=== PATIENT | male | born 1960 | race Caucasian/White ===

== ENCOUNTER 2020-10-22 12:18 | Emergency (ER) | payer SELFPAY ==
[2020-10-22 12:27] VITALS: BP 163/107; PULSE 86
--- NOTE | 2020-10-22 13:16 | EDM.PDOC ---
ED HPI GENERAL MEDICAL PROBLEM - General Chief Complaint: ENT Problem Stated Complaint: DENTAL COMPLAINT Time Seen by Provider: 10/22/20 12:27 Source of Information: Reports: Patient, RN Notes Reviewed History Limitations: Reports: No Limitations - History of Present Illness INITIAL COMMENTS - FREE TEXT/NARRATIVE: Patient is a 60-year-old male presenting to the emergency department with complaints of pain and swelling a tooth in his left upper mouth. Reports the area has been tender for a number of days, however the swelling just developed approximately 2 days ago. He is scheduled to have his teeth pulled in November back home in [place]. He reports that he did have some clindamycin left over from a previous dental infection. He has taken 300 mg 4 times since last e vening. He also had a couple [place] leftover from a previous musculoskeletal injury. He took this in the evening for the last 2 nights to help him sleep, however he is out of this now. He has been taking ibuprofen with little relief. Denies any fever, chills, nausea, or vomiting. Left Oral/Mouth Pain Score (Numeric/FACES): 5 - Related Data Allergies Allergy/AdvReac Type Severity Reaction Status Date / Time Penicillins Allergy Rash Verified 10/22/20 12:27 Home Meds: Home Meds Omeprazole [Prilosec] 20 mg PO DAILY 08/25/13 [History] Hydrocodone/Acetaminophen [Hydrocodone-Acetamin 5-325 mg] 1 each PO Q4H PRN #10 tablet 10/22/20 [Rx] clindamycin HCL [Clindamycin HCl] 450 mg PO Q8H 7 Days #63 capsule 10/22/20 [Rx] Past Medical History HEENT History: Reports: None Cardiovascular History: Reports: None Respiratory History: Reports: None Gastrointestinal History: Reports: None Genitourinary History: Reports: Other (See Below) Other Genitourinary History: kidney infection Musculoskeletal History: Reports: None Neurological History: Reports: None Psychiatric History: Reports: None Endocrine/Metabolic History: Reports: None Hematologic History: Reports: None Immunologic History: Reports: None Oncologic (Cancer) History: Reports: None Dermatologic History: Reports: None - Infectious Disease History Infectious Disease History: Reports: None - Past Surgical History Musculoskeletal Surgical History: Reports: Shoulder Surgery Social & Family History - Family History Family Medical History: No Pertinent Family History - Tobacco Use Tobacco Use Status *Q: Never Tobacco User Second Hand Smoke Exposure: No - Caffeine Use Caffeine Use: Reports: Coffee - Recreational Drug Use Recreational Drug Use: No ED ROS ENT - Review of Systems Review Of Systems: See Below Constitutional: Reports: No Symptoms. Denies: Fever, Chills HEENT: Reports: Dental Pain Respiratory: Reports: No Symptoms Cardiovascular: Reports: No Symptoms Endocrine: Reports: No Symptoms GI/Abdominal: Reports: No Symptoms. Denies: Nausea, Vomiting : Reports: No Symptoms Musculoskeletal: Reports: No Symptoms Skin: Reports: No Symptoms Neurological: Reports: No Symptoms Psychiatric: Reports: No Symptoms Hematologic/Lymphatic: Reports: No Symptoms Immunologic: Reports: No Symptoms ED EXAM, ENT - Physical Exam Exam: See Below Exam Limited By: No Limitations General Appearance: Alert, WD/WN, No Apparent Distress Mouth/Throat: Dental Pain, Gum Swelling (Above tooth #6.), Other (Dental carry to tooth #6). No: Dental Abcess Respiratory/Chest: No Respiratory Distress, Lungs Clear, Normal Breath Sounds, No Accessory Muscle Use, Chest Non-Tender Cardiovascular: Normal Peripheral Pulses, Regular Rate, Rhythm, No Edema, No Gallop, No JVD, No Murmur, No Rub Neurological: Alert, Oriented, CN II-XII Intact, Normal Cognition, Normal Gait, Normal Reflexes, No Motor/Sensory Deficits Psychiatric: Normal Affect, Normal Mood Skin: Warm, Dry, Intact, Normal Color, No Rash Course - Vital Signs Last Recorded V/S: Last Vital Signs Temp 98.4 F 10/22/20 12:26 Pulse 86 10/22/20 12:26 Resp 20 10/22/20 12:26 BP 163/107 H 10/22/20 12:26 Pulse Ox 99 10/22/20 12:26 - Re-Assessments/Exams Free Text/Narrative Re-Assessment/Exam: Patient is a 60-year-old male presenting to the emergency department with complaints of pain and swelling in the area of tooth #6. On exam, he does have obvious dental carry tooth #6 as well as some mild erythema of the gums above this tooth. There is no evidence of abscess. Patient was started on clindamycin 450 mg 3 times daily x7 days. Also sent a short prescription for hydrocodone with Tylenol to help him sleep in the evenings. Recommend routine ibuprofen. Discussed return precautions including fail to improve over the next few days or any worsening symptoms. Discharge instructions as documented. Departure - Departure Time of Disposition: 13:13 Disposition: Home, Self-Care 01 Condition: Good Clinical Impression: Dental caries - Discharge Information *PRESCRIPTION DRUG MONITORING PROGRAM REVIEWED*: Yes *COPY OF PRESCRIPTION DRUG MONITORING REPORT IN PATIENT ROSEMARIE: No Prescriptions: clindamycin HCL [Clindamycin HCl] 450 mg PO Q8H 7 Days #63 capsule Hydrocodone/Acetaminophen [Hydrocodone-Acetamin 5-325 mg] 1 each PO Q4H PRN #10 tablet PRN Reason: Pain Instructions: Diet and Dental Disease Referrals: PCP,None [Primary Care Provider] - Forms: ED Department Discharge Additional Instructions: You were seen in the emergency department today for pain and swelling to your left upper mouth. You been started on clindamycin which is an antibiotic as well as hydrocodone with Tylenol for pain. Recommend routine ibuprofen for the next few days. For pain not relieved by this, you may take one of the hydrocodone. Symptoms should begin to improve over the next few days. If you should experience any worsening symptoms or symptoms fail to improve, you should follow-up either in the clinic, with a dentist, or return to ER. Sepsis Event Note (ED) - Evaluation Sepsis Screening Result: No Definite Risk
== END 2020-10-22 13:26 | disposition home or self-care (01) ==
LOC: JD.ED 12:18
DX: K02.9 Dental caries, unspecified (principal); Z88.0 Allergy status to penicillin
CPT/HCPCS: 99282

== ENCOUNTER 2021-03-05 10:42 | Emergency (ER) | payer SELFPAY ==
[2021-03-05 11:07] VITALS: BP 169/91; PULSE 69
--- NOTE | 2021-03-05 11:37 | EDM.PDOC ---
ED HPI GENERAL MEDICAL PROBLEM - General Chief Complaint: Genitourinary Problem Stated Complaint: BLOOD IN URINE Time Seen by Provider: 03/05/21 11:03 Source of Information: Reports: Patient, Old Records, RN Notes Reviewed History Limitations: Reports: No Limitations - History of Present Illness INITIAL COMMENTS - FREE TEXT/NARRATIVE: Patient is a 60-year-old male who presents to the ER for evaluation of blood in his urine. States that he had issues with this back in August, and did actually have a hospitalization for urosepsis, and he said he had a stent placed at that time. He noticed for at least the last 3 days, he has had more blood in his urine. 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 He notes that the blood in his urine seems to lessen when he is relaxing, and not at work. Also is complaining of urinary urgency at this time, some right groin pain, and left flank pain. No fevers, no chills, no cough/shortness of breath or any sort of nausea/vomiting/diarrhea. - Related Data Allergies Allergy/AdvReac Type Severity Reaction Status Date / Time No Known Allergies Allergy Verified 03/05/21 11:07 Home Meds: Home Meds Omeprazole [Prilosec] 20 mg PO DAILY 08/25/13 [History] Past Medical History Genitourinary History: Reports: Other (See Below) Other Genitourinary History: kidney infection; prostatitis, urosepsis in August 2020-hospitalized for 10 days Psychiatric History: Reports: Addiction Other Psychiatric History: hx of recreational drug use/addiction Endocrine/Metabolic History: Reports: Obesity/BMI 30+ - Past Surgical History Male Surgical History: Reports: Ureteral Stent (states was placed in August 2020) Musculoskeletal Surgical History: Reports: Shoulder Surgery Social & Family History - Family History Family Medical History: No Pertinent Family History - Tobacco Use Tobacco Use Status *Q: Never Tobacco User Second Hand Smoke Exposure: No - Caffeine Use Caffeine Use: Reports: Coffee - Recreational Drug Use Recreational Drug Use: Yes Drug Use in Last 12 Months: No Recreational Drug Type: Reports: Cocaine ED ROS GENERAL - Review of Systems Review Of Systems: Comprehensive ROS is negative, except as noted in HPI. ED EXAM, RENAL/ - Physical Exam Exam: See Below Exam Limited By: No Limitations General Appearance: Alert, WD/WN, No Apparent Distress Respiratory/Chest: No Respiratory Distress, Lungs Clear, Normal Breath Sounds, No Accessory Muscle Use, Chest Non-Tender Cardiovascular: Normal Peripheral Pulses, Regular Rate, Rhythm, No Edema GI/Abdominal: Normal Bowel Sounds, Soft, Non-Tender, No Distention, No Mass Extremities: Normal Inspection, Normal Capillary Refill Neurological: Alert, Oriented, Normal Cognition, No Motor/Sensory Deficits Psychiatric: Normal Affect, Normal Mood Skin Exam: Warm, Dry, Intact, Normal Color, No Rash Course - Vital Signs Last Recorded V/S: Last Vital Signs Temp 98 F 03/05/21 10:59 Pulse 69 03/05/21 10:59 Resp 16 03/05/21 10:59 BP 169/91 H 03/05/21 10:59 Pulse Ox 98 03/05/21 10:59 - Orders/Labs/Meds Labs: Laboratory Tests 03/05/21 03/05/21 03/05/21 Range/Units 11:11 11:39 11:39 WBC 4.83 (4.23-9.07) K/mm3 RBC 5.12 (4.63-6.08) M/mm3 Hgb 14.0 (13.7-17.5) gm/dl Hct 40.2 (40.1-51.0) % MCV 78.5 L (79.0-92.2) fl MCH 27.3 (25.7-32.2) pg MCHC 34.8 (32.2-35.5) g/dl RDW Std Deviation 39.8 (35.1-43.9) fL Plt Count 209 (163-337) K/mm3 MPV 8.8 L (9.4-12.3) fl Neut % (Auto) 62.4 (34.0-67.9) % Lymph % (Auto) 28.8 (21.8-53.1) % [place] % (Auto) 6.4 (5.3-12.2) % Eos % (Auto) 1.0 (0.8-7.0) Baso % (Auto) 1.2 (0.1-1.2) % Neut # (Auto) 3.01 (1.78-5.38) K/mm3 Lymph # (Auto) 1.39 (1.32-3.57) K/mm3 [place] # (Auto) 0.31 (0.30-0.82) K/mm3 Eos # (Auto) 0.05 (0.04-0.54) K/mm3 Baso # (Auto) 0.06 (0.01-0.08) K/mm3 Sodium 139 (136-145) mEq/L Potassium 3.8 (3.5-5.1) mEq/L Chloride 104 (98-107) mEq/L Carbon Dioxide 25 (21-32) mEq/L Anion Gap 13.8 (5-15) BUN 11 (7-18) mg/dL Creatinine 0.9 (0.7-1.3) mg/dL Est Cr Clr Drug Dosing 89.00 mL/min Estimated GFR (MDRD) > 60 (>60) mL/min BUN/Creatinine Ratio 12.2 L (14-18) Glucose 109 H (70-99) mg/dL Calcium 8.5 (8.5-10.1) mg/dL Total Bilirubin 0.5 (0.2-1.0) mg/dL AST 16 (15-37) U/L ALT 28 (16-63) U/L Alkaline Phosphatase 50 (46-116) U/L C-Reactive Protein <0.2 (<1.0) mg/dL Total Protein 7.0 (6.4-8.2) g/dl Albumin 3.5 (3.4-5.0) g/dl Globulin 3.5 gm/dL Albumin/Globulin Ratio 1.0 (1-2) Urine Color Dark yellow (Yellow) Urine Appearance Slt cloudy H (Clear) Urine pH 6.0 (5.0-8.0) Ur Specific [place] 1.025 (1.005-1.030) Urine Protein 2+ H (Negative) Urine Glucose (UA) Negative (Negative) Urine Ketones Negative (Negative) Urine Occult Blood 3+ H (Negative) Urine Nitrite Positive H (Negative) Urine Bilirubin Negative (Negative) Urine Urobilinogen 0.2 (0.2-1.0) Ur Leukocyte Esterase Trace H (Negative) Urine RBC >100 H (0-5) /hpf Urine WBC 5-10 H (0-5) /hpf Ur Squamous Epith Cells 0-5 (0-5) /hpf Urine Bacteria Moderate H (FEW) /hpf Urine Mucus Few (FEW) /hpf - Re-Assessments/Exams Free Text/Narrative Re-Assessment/Exam: 03/05/21 11:39 Patient presents to the ER for his blood in his urine, will get a urinalysis and basic labs for initial management. Does appear as if he is at risk for UTI versus prostatitis. 03/05/21 12:09 Labs have resulted, CBC is unremarkable, CMP also unremarkable. Urinalysis is positive for UTI with nitrites, over 100 red blood cells per high-power field, and 5-10 white blood cells per high-power field and moderate bacteria within the urine itself. We will treat him for this with levofloxacin once daily x2 weeks and then doxycycline twice daily for 1 month after this as it is suspect is coming from the prostate. Departure - Departure Time of Disposition: 12:09 Disposition: Home, Self-Care 01 Condition: Good Clinical Impression: Prostatitis Qualifiers: Prostatitis type: acute Qualified Code(s): N41.0 - Acute prostatitis UTI (urinary tract infection) Qualifiers: Urinary tract infection type: acute cystitis Hematuria presence: with hematuria Qualified Code(s): N30.01 - Acute cystitis with hematuria - Discharge Information *PRESCRIPTION DRUG MONITORING PROGRAM REVIEWED*: No *COPY OF PRESCRIPTION DRUG MONITORING REPORT IN PATIENT ROSEMARIE: No Instructions: Prostatitis, [id number] Referrals: PCP,None [Primary Care Provider] - Forms: ED Department Discharge Additional Instructions: You have been evaluated in the ED for your urinary symptoms. Your urinalysis was consistent with an acute urinary tract infection; likely secondary to prostatitis. Your urine was sent for culture, and you will be notified if you should need a change in your antibiotic. This may take up to 48 hours to result. Since you are already taking Azo for urinary pain relief; you should only use this medication for a time period not longer than 72 hours. So after tomorrow, please cease use of this medication as it can be fairly toxic to your liver. You have been given a prescription for 2 different antibiotics, first antibiotic will be levofloxacin 1 tablet daily for the first 2 weeks and then doxycycline 1 tablet 2 times a day for 1 month. This is to treat bacteria suspect coming from your prostate; which is likely causing you to have ongoing urinary issues. Antibiotics can take up to 48 hours to start providing effect, if you do not notice a improvement in your symptoms by about Sunday or Sunday, I would recommend that you seek care for reevaluation. This medication was electronically sent to the [place] pharmacy located in the [employer] [facility]. Please increase your oral fluid intake and try to stay adequately hydrated. Please return to the ED if your symptoms change or worsen. Thank you for allowing and choosing us to be involved in your healthcare needs. Sepsis Event Note (ED) - Evaluation Sepsis Screening Result: No Definite Risk - Focused Exam Vital Signs: Vital Signs Temp Pulse Resp BP Pulse Ox 03/05/21 10:59 98 F 69 16 169/91 H 98
== END 2021-03-05 12:20 | disposition home or self-care (01) ==
LOC: JD.ED 10:42
DX: N30.01 Acute cystitis with hematuria (principal); N41.0 Acute prostatitis; E66.9 Obesity, unspecified; Z68.32 Body mass index [BMI] 32.0-32.9, adult
CPT/HCPCS: 36415; 80053; 81001; 85025; 86140; 87086; 99284

== ENCOUNTER 2021-03-31 14:21 | Emergency (ER) | payer SELFPAY ==
[2021-03-31] MEDS ORDERED: Sodium Chloride 0.9% 10 ML Syringe FLUSH PRN (14:35)
[2021-03-31] MEDS ORDERED: Sodium Chloride 0.9% 1,000 ML IV SCH (14:45)
[2021-03-31] MEDS ORDERED: Ondansetron 4 MG/2 ML SDV IVPUSH ONE (14:54)
[2021-03-31] MEDS ORDERED: HYDROmorphone 0.5 MG/0.5 ML Syringe IVPUSH ONE ×4 (14:54→18:31)
[2021-03-31] MEDS ORDERED: Iopamidol 612 MG/ML 100 ML Bottle IVPUSH ONE (15:05)
[2021-03-31] MEDS ORDERED: Iopamidol 612 MG/ML 50 ML SDV IVPUSH ONE (15:05)
[2021-03-31] MEDS ORDERED: Sodium Chloride 0.9% 10 ML Syringe FLUSH ONE (15:05)
--- NOTE | 2021-03-31 15:29 | EDM.PDOC ---
ED HPI GENERAL MEDICAL PROBLEM - General Chief Complaint: Genitourinary Problem Stated Complaint: BLOOD IN URINE/UNABLE TO SLEEP/FEVER Time Seen by Provider: 03/31/21 14:37 Source of Information: Reports: Patient, RN Notes Reviewed History Limitations: Reports: No Limitations - History of Present Illness INITIAL COMMENTS - FREE TEXT/NARRATIVE: Patient is a 61-year-old male presenting to the emergency department with complaints of right flank pain radiating into his right lower quadrant. Symptoms have been present for approximately last week and have been progressively worsening. He has a history of pyelonephritis with stent placement in August. He was seen in this emergency department 1 month ago and diagnosed with urinary tract infection secondary to prostatitis. He was put on a 7-day course of Levaquin which she did complete. He is still taking doxycycline 100 mg twice daily for treatment of this. Patient reports he has had hematuria. A few days ago he states it was "very bloody ". It then cleared up. Today states his urine is brown in color. He reports difficulty voiding. He denies any known fever. He has had no nausea or vomiting. He is concerned t hat his stent may have dislodged from his ureter. Generalized Pain Score (Numeric/FACES): 10 - Related Data Allergies Allergy/AdvReac Type Severity Reaction Status Date / Time No Known Allergies Allergy Verified 03/05/21 11:07 Home Meds: Home Meds Omeprazole [Prilosec] 20 mg PO DAILY 08/25/13 [History] Doxycycline [Vibramycin] 100 mg PO BID 30 Days #60 tab 03/05/21 [Rx] levoFLOXacin [Levofloxacin] 500 mg PO DAILY #14 tablet 03/05/21 [Rx] Past Medical History Gastrointestinal History: Reports: GERD Genitourinary History: Reports: Other (See Below) Other Genitourinary History: ;kidney infection; prostatitis, urosepsis in August 2020-hospitalized for 10 days; urinary stent to the right urter Psychiatric History: Reports: Addiction Other Psychiatric History: hx of recreational drug use/addiction Endocrine/Metabolic History: Reports: Obesity/BMI 30+ - Infectious Disease History Infectious Disease History: Reports: None - Past Surgical History Male Surgical History: Reports: Ureteral Stent Musculoskeletal Surgical History: Reports: Shoulder Surgery Social & Family History - Family History Family Medical History: No Pertinent Family History - Tobacco Use Tobacco Use Status *Q: Never Tobacco User - Caffeine Use Caffeine Use: Reports: Coffee, Soda - Recreational Drug Use Recreational Drug Use: No ED ROS GENERAL - Review of Systems Review Of Systems: Comprehensive ROS is negative, except as noted in HPI. ED EXAM, RENAL/ - Physical Exam Exam: See Below General Appearance: Alert, Anxious, Moderate Distress, Other (Intermittently tearful) Respiratory/Chest: No Respiratory Distress, Lungs Clear, Normal Breath Sounds, No Accessory Muscle Use, Chest Non-Tender Cardiovascular: Normal Peripheral Pulses, Regular Rate, Rhythm, No Edema, No Gallop, No JVD, No Murmur, No Rub GI/Abdominal: Normal Bowel Sounds, Soft, No Organomegaly, No Distention, No Abnormal Bruit, No Mass, Tender (Mild tenderness to deep palpation of the right lower and right lateral abdomen.) Back Exam: Normal Inspection, Full Range of Motion, CVA Tenderness (R) Neurological: Alert, Oriented, Normal Cognition, Normal Gait, No Motor/Sensory Deficits Psychiatric: Normal Affect, Normal Mood Skin Exam: Warm, Dry, Intact, Normal Color, No Rash Course - Vital Signs Last Recorded V/S: Last Vital Signs Temp 98.3 F 03/31/21 16:40 Pulse 91 03/31/21 16:40 Resp 18 03/31/21 16:40 BP 164/106 H 03/31/21 16:40 Pulse Ox 97 03/31/21 16:40 - Orders/Labs/Meds Orders: Active Orders 24 hr Category Date Time Status Peripheral IV Insertion Adult [OM.PC] Stat Oth 03/31/21 14:35 Ordered Labs: Laboratory Tests 03/31/21 03/31/21 03/31/21 Range/Units 14:45 14:45 14:45 WBC 7.32 (4.23-9.07) K/mm3 RBC 5.39 (4.63-6.08) M/mm3 Hgb 14.8 (13.7-17.5) gm/dl Hct 41.8 (40.1-51.0) % MCV 77.6 L (79.0-92.2) fl MCH 27.5 (25.7-32.2) pg MCHC 35.4 (32.2-35.5) g/dl RDW Std Deviation 39.0 (35.1-43.9) fL Plt Count 312 D (163-337) K/mm3 MPV 9.2 L (9.4-12.3) fl Neut % (Auto) 62.8 (34.0-67.9) % Lymph % (Auto) 28.4 (21.8-53.1) % [place] % (Auto) 7.4 (5.3-12.2) % Eos % (Auto) 0.8 (0.8-7.0) Baso % (Auto) 0.3 (0.1-1.2) % Neut # (Auto) 4.60 (1.78-5.38) K/mm3 Lymph # (Auto) 2.08 (1.32-3.57) K/mm3 [place] # (Auto) 0.54 (0.30-0.82) K/mm3 Eos # (Auto) 0.06 (0.04-0.54) K/mm3 Baso # (Auto) 0.02 (0.01-0.08) K/mm3 Sodium 144 (136-145) mEq/L Potassium 3.8 (3.5-5.1) mEq/L Chloride 107 (98-107) mEq/L Carbon Dioxide 23 (21-32) mEq/L Anion Gap 17.8 H (5-15) BUN 19 H (7-18) mg/dL Creatinine 1.5 H (0.7-1.3) mg/dL Est Cr Clr Drug Dosing 52.72 mL/min Estimated GFR (MDRD) 47 (>60) mL/min BUN/Creatinine Ratio 12.7 L (14-18) Glucose 120 H (70-99) mg/dL Calcium 8.9 (8.5-10.1) mg/dL Total Bilirubin 0.3 (0.2-1.0) mg/dL AST 20 (15-37) U/L ALT 29 (16-63) U/L Alkaline Phosphatase 59 (46-116) U/L C-Reactive Protein <0.2 (<1.0) mg/dL Total Protein 7.3 (6.4-8.2) g/dl Albumin 3.5 (3.4-5.0) g/dl Globulin 3.8 gm/dL Albumin/Globulin Ratio 0.9 L (1-2) Urine Color (Yellow) Urine Appearance (Clear) Urine pH (5.0-8.0) Ur Specific [place] (1.005-1.030) Urine Protein (Negative) Urine Glucose (UA) (Negative) Urine Ketones (Negative) Urine Occult Blood (Negative) Urine Nitrite (Negative) Urine Bilirubin (Negative) Urine Urobilinogen (0.2-1.0) Ur Leukocyte Esterase (Negative) Urine RBC (0-5) /hpf Urine WBC (0-5) /hpf Ur Squamous Epith Cells (0-5) /hpf Calcium Oxalate Crystal (NONE) Urine Bacteria (FEW) /hpf Urine Mucus (FEW) /hpf SARS-CoV-2 RNA (SEB) (NEGATIVE) 03/31/21 03/31/21 Range/Units 16:10 16:10 WBC (4.23-9.07) K/mm3 RBC (4.63-6.08) M/mm3 Hgb (13.7-17.5) gm/dl Hct (40.1-51.0) % MCV (79.0-92.2) fl MCH (25.7-32.2) pg MCHC (32.2-35.5) g/dl RDW Std Deviation (35.1-43.9) fL Plt Count (163-337) K/mm3 MPV (9.4-12.3) fl Neut % (Auto) (34.0-67.9) % Lymph % (Auto) (21.8-53.1) % [place] % (Auto) (5.3-12.2) % Eos % (Auto) (0.8-7.0) Baso % (Auto) (0.1-1.2) % Neut # (Auto) (1.78-5.38) K/mm3 Lymph # (Auto) (1.32-3.57) K/mm3 [place] # (Auto) (0.30-0.82) K/mm3 Eos # (Auto) (0.04-0.54) K/mm3 Baso # (Auto) (0.01-0.08) K/mm3 Sodium (136-145) mEq/L Potassium (3.5-5.1) mEq/L Chloride (98-107) mEq/L Carbon Dioxide (21-32) mEq/L Anion Gap (5-15) BUN (7-18) mg/dL Creatinine (0.7-1.3) mg/dL Est Cr Clr Drug Dosing mL/min Estimated GFR (MDRD) (>60) mL/min BUN/Creatinine Ratio (14-18) Glucose (70-99) mg/dL Calcium (8.5-10.1) mg/dL Total Bilirubin (0.2-1.0) mg/dL AST (15-37) U/L ALT (16-63) U/L Alkaline Phosphatase (46-116) U/L C-Reactive Protein (<1.0) mg/dL Total Protein (6.4-8.2) g/dl Albumin (3.4-5.0) g/dl Globulin gm/dL Albumin/Globulin Ratio (1-2) Urine Color Chery H (Yellow) Urine Appearance Cloudy H (Clear) Urine pH 6.5 (5.0-8.0) Ur Specific [place] 1.025 (1.005-1.030) Urine Protein 3+ H (Negative) Urine Glucose (UA) Negative (Negative) Urine Ketones 1+ H (Negative) Urine Occult Blood 3+ H (Negative) Urine Nitrite Negative (Negative) Urine Bilirubin 1+ H (Negative) Urine Urobilinogen 0.2 (0.2-1.0) Ur Leukocyte Esterase 1+ H (Negative) Urine RBC >100 H (0-5) /hpf Urine WBC 5-10 H (0-5) /hpf Ur Squamous Epith Cells 0-5 (0-5) /hpf Calcium Oxalate Crystal Few H (NONE) Urine Bacteria Moderate H (FEW) /hpf Urine Mucus Few (FEW) /hpf SARS-CoV-2 RNA (SEB) Negative (NEGATIVE) Meds: Medications Discontinued Medications Generic Name Dose Route Start Last Admin Trade Name Freq PRN Reason Stop Dose Admin Hydromorphone HCl 0.5 mg 03/31/21 14:54 03/31/21 15:02 Hydromorphone 0.5 Mg/0.5 Ml Syringe IVPUSH 03/31/21 14:55 0.5 mg ONETIME ONE Administration Hydromorphone HCl 0.5 mg 03/31/21 15:28 03/31/21 16:13 Hydromorphone 0.5 Mg/0.5 Ml Syringe IVPUSH 03/31/21 15:29 0.5 mg ONETIME ONE Administration Hydromorphone HCl 0.5 mg 03/31/21 17:20 03/31/21 17:45 Hydromorphone 0.5 Mg/0.5 Ml Syringe IVPUSH 03/31/21 17:21 0.5 mg ONETIME ONE Administration Hydromorphone HCl 0.5 mg 03/31/21 18:31 03/31/21 18:42 Hydromorphone 0.5 Mg/0.5 Ml Syringe IVPUSH 03/31/21 18:32 0.5 mg ONETIME ONE Administration Sodium Chloride 1,000 mls @ 150 mls/hr 03/31/21 14:45 03/31/21 14:49 Normal Saline IV 150 mls/hr ASDIRECTED LUIS Administration Ceftriaxone Sodium 2 gm/ 100 mls @ 200 mls/hr 03/31/21 18:27 03/31/21 18:44 Sodium Chloride IV 03/31/21 18:56 200 mls/hr ONETIME ONE Administration Iopamidol 100 ml 03/31/21 15:05 Iopamidol 612 Mg/Ml 100 Ml Bottle IVPUSH 03/31/21 15:06 ONETIME ONE Iopamidol 50 ml 03/31/21 15:05 Iopamidol 612 Mg/Ml 50 Ml Sdv IVPUSH 03/31/21 15:06 ONETIME ONE Ondansetron HCl 4 mg 03/31/21 14:54 03/31/21 15:02 Ondansetron 4 Mg/2 Ml Sdv IVPUSH 03/31/21 14:55 4 mg ONETIME ONE Administration Sodium Chloride 10 ml 03/31/21 14:35 03/31/21 14:50 Sodium Chloride 0.9% 10 Ml Syringe FLUSH 10 ml ASDIRECTED PRN Administration Keep Vein Open Sodium Chloride 10 ml 03/31/21 15:05 Sodium Chloride 0.9% 10 Ml Syringe FLUSH 03/31/21 15:06 ONETIME ONE - Re-Assessments/Exams Free Text/Narrative Re-Assessment/Exam: Patient is a 21-year-old female presenting to the emergency department with complaints of a 1 week history of pelvic pain and cramping as well as nasal congestion. Patient is a 61-year-old male presenting to the emergency department with complaints of severe right flank pain with radiation into his right lower quadrant abdomen. Symptoms have progressively worsening over the course of the last week. Treated 1 month ago for urinary tract infection and continues doxycycline at this time. On exam, patient has significant right CVA tenderness. He is in obvious distress. Bowel sounds are active in all 4 quadrants. Mild tenderness to deep palpation of the right lobe lower quadrant. I have ordered blood work, urinalysis, Covid testing, normal saline at 150 mill per hour, Dilaudid for pain, Zofran for nausea. I will complete a CT scan of the abdomen pelvis with IV contrast only. 03/31/21 1450 Hematology significant for anion gap elevated 17.8, BUN 19, creatinine 1.5. He has not produced a urine thus far. GFR is decreased from 60 when he was here 1 month ago to 47. We will complete the CT of the abdomen pelvis without contrast as this will show us stones, pyelonephritis, and hydronephrosis. If there is no evidence of any of these, we will repeat CT scan with IV contrast to look for renal infarct. 03/31/[address] scan of the abdomen pelvis impression as follows: 1. Dilatated right renal pelvis. Stent within the renal pelvis is noted with the distal end of the stent terminating within the bladder. 2. Spleen is enlarged with a length of 15.3 cm. 3. Small hiatal hernia. Given these findings, I am concerned that the patient's ureteral stent is obstructed. He has just provided us a urine sample. Urinalysis is significant for 3+ occult blood, 1+ bili, 1+ leukocyte esterase, greater than 100 RBCs, 5-10 WBCs, and moderate bacteria. I have placed a call to the urologist on-call at [facility]. He will call me back. 03/31/21 1746 Call was received from the urologist on-call at [facility], Dr. Cabrera. He agrees that the patient's stent is likely obstructed. He will call me back in a few minutes. 03/31/21 18:37 Call received from Mara from one call at [facility]. She reports that Dr. Cabrera has arranged for the patient to be transferred to the emergency department with plans of having surgery to remove the stent. I spoke with ER physician, Dr. Smith. He has accepted the patient for transf er to. Plan will be for him to go to surgery from the ER and return back there as needed. Patient updated and is in agreement. Advised he should be n.p.o. I will give 2 g of Rocephin and another dose of Dilaudid prior to departure. He will be transported by ground ambulance. Departure - Departure Time of Disposition: 18:37 Disposition: DC/Tfer to [facility] 02 Condition: Good Clinical Impression: Ureteral obstruction, right, UTI, Urinary tract infectious disease - Discharge Information Referrals: PCP,None [Primary Care Provider] - Forms: ED Department Discharge Sepsis Event Note (ED) - Focused Exam Vital Signs: Vital Signs Temp Pulse Resp BP Pulse Ox 03/31/21 16:40 98.3 F 91 18 164/106 H 97 - My Orders Last 24 Hours: My Active Orders 03/31/21 14:35 Peripheral IV Insertion Adult [OM.PC] Stat - Assessment/Plan Last 24 Hours: My Active Orders 03/31/21 14:35 Peripheral IV Insertion Adult [OM.PC] Stat
--- NOTE | 2021-03-31 16:18 | CT ---
CT abdomen and pelvis Technique: Multiple axial sections were obtained from above the dome of the diaphragm inferiorly through the pubic symphysis. Intravenous and oral contrast were not utilized. Reconstructed coronal and sagittal images were obtained. Comparison: No prior abdominal imaging is available. Findings: Dilated renal pelvis is seen on the right side. There is evidence of a stent within the renal pelvis. Stent continues through the ureter into the bladder. Left ureter shows no dilatation. No calcifications are seen within the kidneys. No definite abnormal calcifications are seen along the ureter. Visualized lung bases show nothing acute. Noncontrast appearance of the liver shows no focal abnormality. Small hiatal hernia is seen. Spleen is enlarged with length of 15.3 cm. Adrenal glands show no nodule. Pancreas shows no abnormality. Gallbladder contains no calcified gallstones. Abdominal aorta shows no aneurysm. No retroperitoneal adenopathy or mesenteric abnormalities are seen. Appendix is seen which is normal in size. No pelvic mass or adenopathy is seen. Bone window settings were reviewed which show disc space narrowing and vacuum phenomena within the L5-S1 disc. Mild scattered endplate osteophytes are seen within the spine. Impression: 1. Dilated right renal pelvis. Stent within the renal pelvis is noted with distal end of the stent terminating within the bladder. 2. Spleen is enlarged with length of 15.3 cm. 3. Small hiatal hernia. Diagnostic code #3
[2021-03-31 16:43] VITALS: BP 164/106; PULSE 91
[2021-03-31] MEDS ORDERED: cefTRIAXone 2 GM in Sodium Chloride 0.9% 100 ML IV ONE (18:27)
== END 2021-03-31 19:00 ==
LOC: JD.ED 14:21
DX: N39.0 Urinary tract infection, site not specified (principal); N36.8 Other specified disorders of urethra; K21.9 Gastro-esophageal reflux disease without esophagitis; E66.9 Obesity, unspecified; Z79.899 Other long term (current) drug therapy; Z68.30 Body mass index [BMI] 30.0-30.9, adult; Z20.822 Contact with and (suspected) exposure to COVID-19
CPT/HCPCS: 36415; 74176; 80053; 81001; 85025; 86140; 87635; 96365; 96375; 96376; 99285; J0696; J1170; J2405; J7030; U0002

== ENCOUNTER 2023-05-23 07:51 | Emergency (ER) | payer MEDICAID | END 2023-05-23 08:00 | disposition left against medical advice (07) | LOC: JD.ED 07:51 | DX: Z53.21 Procedure and treatment not carried out due to patient leaving prior to being seen by health care provider (principal) ==

== ENCOUNTER 2023-05-23 10:04 | Emergency (ER) | payer BC ==
[2023-05-23] MEDS ORDERED: Sodium Chloride 0.9% 10 ML Syringe FLUSH PRN ×2 (10:34→10:42)
[2023-05-23] MEDS ORDERED: Metoprolol Succinate 25 MG Tab.ER PO ONE (10:35)
[2023-05-23] MEDS ORDERED: Iopamidol 755 Mg/ML 100 ML Bottle IVPUSH ONE (10:42)
[2023-05-23] MEDS ORDERED: Sodium Chloride 0.9% 100 ML IV SCH (10:45)
[2023-05-23 11:41] LABS: BASOPHILS ABSOLUTE AUTO 0.1 K/mm3 (0.0-0.2); BASOPHILS PERCENT AUTO 0.9 % (0.0-1.0); EOSINOPHILS ABSOLUTE AUTO 0.1 K/mm3 (0.0-0.4); EOSINOPHILS PERCENT AUTO 1.3 % (0.0-6.0); HEMATOCRIT 40.6 % (42.0-52.0); HEMOGLOBIN 13.9 gm/dl (14.0-18.0); IMMATURE GRAN ABSOLUTE AUTO 0.01 K/mm3 (0.00-0.05); IMMATURE GRAN PERCENT AUTO 0.2 % (0.0-0.4); LYMPHOCYTES ABSOLUTE AUTO 0.9 K/mm3 (1.0-4.8); LYMPHOCYTES PERCENT AUTO 16.7 % (24.0-44.0); MEAN CORPUSCULAR HEMOGLOBIN 27.7 pg (28.0-32.0); MEAN CORPUSCULAR HGB CONC 34.2 g/dl (32.0-36.0); MEAN CORPUSCULAR VOLUME 80.9 fl (83.0-99.0); MEAN PLATELET VOLUME 8.8 fl (9.4-12.4); MONOCYTES ABSOLUTE AUTO 0.5 K/mm3 (0.0-0.8); NEUTROPHILS ABSOLUTE AUTO 3.8 K/mm3 (1.8-7.7); NEUTROPHILS PERCENT AUTO 71.9 % (41.0-71.0); PLATELET COUNT,PLT 186 K/mm3 (150-400); RED BLOOD CELL COUNT 5.02 M/mm3 (4.52-5.90); WHITE BLOOD CELL COUNT,WBC 5.33 K/mm3 (3.9-11.3)
[2023-05-23 12:10] LABS: A/G RATIO 0.9 (1-2); ALBUMIN 3.2 g/dl (3.4-5.0); BILIRUBIN TOTAL 0.7 mg/dL (0.2-1.0); BUN/CREATININE RATIO 16.2 (14-18); CALCIUM 8.8 mg/dL (8.5-10.1); CREATININE 1.3 mg/dL (0.7-1.3); EST CRCL DRUG DOSING (CG) 61.14 mL/min; MAGNESIUM 1.6 mg/dL (1.8-2.4); PROTEIN TOTAL,TP 6.7 g/dl (6.4-8.2)
[2023-05-23] MEDS ORDERED: Furosemide 20 MG/2 ML VIAL IVPUSH ONE (12:20)
[2023-05-23] MEDS ORDERED: Digoxin 500 MCG/2 ML Amp IVPUSH ONE (12:33)
[2023-05-23 15:07] VITALS: BP 133/94; PULSE 105
== END 2023-05-23 14:50 | disposition home or self-care (01) ==
LOC: JD.ED 10:04
DX: I48.92 Unspecified atrial flutter (principal); K21.9 Gastro-esophageal reflux disease without esophagitis; E66.9 Obesity, unspecified; Z79.899 Other long term (current) drug therapy; Z68.28 Body mass index [BMI] 28.0-28.9, adult
CPT/HCPCS: 36415; 71275; 71275-26; 80053; 83735; 83880; 84484; 85025; 93005; 93010; 96374; 96375; 99284; 99285-25; A9270-GY; J1160; J1940; J3490; Q9967